=== PATIENT | female | born 1995 | race Caucasian/White ===

== ENCOUNTER 2020-11-29 22:37 | Emergency (ER) | payer OTHER ==
[~2020-11-29] VITALS: Ht 165.1 cm; Wt 106.8 kg
[2020-11-29 22:41] VITALS: BP 141/76
[2020-11-29] MEDS ORDERED: ZOLO25TA PO (23:03)
== END 2020-11-30 00:40 | disposition left against medical advice (07) ==
LOC: M ED 22:37
DX: Z53.21 Procedure and treatment not carried out due to patient leaving prior to being seen by health care provider (principal)

== ENCOUNTER → 2021-01-31 | Outpatient (CLI) | payer OTHER ==
[~2021-01-31] MED LIST: ACET-907 PO; ANEC4CRE3 TOP; CLAR10CA3 PO; OMEP10CASR PO; PRENTAB9 PO; VITA50TA43 PO; ZOFR4TAB16 PO; ZOLO25TA PO
[2021-01-31 08:54] LABS: HEMATOCRIT 37.2 % (36.0-47.0); HEMOGLOBIN 12.3 g/dl (12.0-15.5); MEAN CORPUSCULAR HEMOGLOBIN 29.3 pg (27.0-33.0); MEAN CORPUSCULAR HGB CONC 33.1 g/dl (32.0-36.5); MEAN CORPUSCULAR VOLUME 88.6 fl (80.0-96.0); PLATELET COUNT, AUTOMATED 220 10^3/uL (150-450); WHITE BLOOD COUNT 8.3 10^3/uL (4.0-10.0)
[2021-01-31 09:20] LABS: GLUCOSE CHALLENGE TEST 1 HOUR 61 MG/DL (LESS THAN 140)
[2021-01-31 10:40] LABS: GC DNA AMPLIFICATION NEGATIVE (NEGATIVE)
[2021-01-31 11:05] LABS: HEPATITIS B SURFACE ANTIGEN NEGATIVE (NEGATIVE)
[2021-01-31 11:33] LABS: HEPATITIS C VIRUS ABY INDEX 0.1 INDEX (<0.8); HIV 1&2 SCREEN CENTAUR NEGATIVE (NEGATIVE)
== END ==
LOC: M LAB 06:54
PROVIDERS: ATTEND Advanced Practice Midwife
DX: Z36.89 Encounter for other specified antenatal screening (principal); Z3A.09 9 weeks gestation of pregnancy

== ENCOUNTER → 2021-02-11 | Outpatient (CLI) | payer OTHER ==
[~2021-02-11] MED LIST changes: -ACET-907 PO; -ANEC4CRE3 TOP; -CLAR10CA3 PO; -OMEP10CASR PO; -PRENTAB9 PO; -VITA50TA43 PO; -ZOFR4TAB16 PO
== END ==
LOC: M WHC 16:09
PROVIDERS: ATTEND Obstetrics & Gynecology
DX: Z34.82 Encounter for supervision of other normal pregnancy, second trimester (principal); Z3A.15 15 weeks gestation of pregnancy; Z53.8 Procedure and treatment not carried out for other reasons

== ENCOUNTER → 2021-02-15 | Outpatient (CLI) | payer OTHER | LOC: M PLALAB 12:59 | PROVIDERS: ATTEND Obstetrics & Gynecology | DX: Z34.91 Encounter for supervision of normal pregnancy, unspecified, first trimester (principal); Z3A.00 Weeks of gestation of pregnancy not specified ==

== ENCOUNTER → 2021-03-16 | Outpatient (CLI) | payer OTHER ==
[~2021-03-16] MED LIST changes: +ACET-907 PO; +CLAR10CA3 PO; +OMEP10CASR PO; +PRENTAB9 PO; +VITA50TA43 PO; +ZOFR4TAB16 PO
--- NOTE | 2021-03-16 08:34 | REP ---
INDICATION: ANATOMY COMPARISON: None. TECHNIQUE: Transabdominal obstetrical ultrasound with color Doppler evaluation. FINDINGS: Examination demonstrates a single live intrauterine in cephalic presentation. motion is identified by technologist. Placenta is noted posterior and grade 1 without evidence for placenta previa or abruption. Amniotic fluid volume is normal. Cervix measures 5.7 cm in length and appears closed.. Selected gestational age: 20 weeks 2 days with EMMY 08/01/2021. Gestational age by current measurements 20 weeks 3 days with EMMY 07/31/2021. FHR equals 143 beats per minute. BPD: 4.9 cm at 20 weeks 6 days HC: 18.3 cm at 20 weeks 5 days AC: 15.3 cm at 20 weeks 3 days FL: 3.3 cm at 20 weeks 1 day HL: 3.0 cm at 20 weeks 0 days HC/AC: 1.20 Estimated weight 351 grams (52ndpercentile). Anatomical assessment demonstrates normal structures including cranium, choroid plexus, cavum, cerebellum/posterior fossa, facial features, lungs, diaphragm, stomach, cord insertion/three-vessel cord, bladder, spine, and extremities. Limited evaluation of the heart/ventricular outflow tracts and kidneys due to positioning and body habitus. IMPRESSION: 1. Single live intrauterine in cephalic presentation demonstrating appropriate estimated weight. 2. Anatomical limitations as noted above. No gross abnormalities are identified. <Electronically signed by Jorge Maya > 03/16/21 [id number]
== END ==
LOC: M WHC 06:55
PROVIDERS: ATTEND Obstetrics & Gynecology
DX: Z36.89 Encounter for other specified antenatal screening (principal); Z3A.15 15 weeks gestation of pregnancy

== ENCOUNTER 2021-03-17 17:32 | Outpatient (CLI) | payer OTHER ==
[~2021-03-17] VITALS: Ht 165.1 cm; Wt 120.2 kg
[~2021-03-17 17:32] MED LIST changes: -ACET-907 PO; -CLAR10CA3 PO; -OMEP10CASR PO; -PRENTAB9 PO; -VITA50TA43 PO; -ZOFR4TAB16 PO
[2021-03-17] MEDS ORDERED: VITA50TA43 PO (17:55)
[2021-03-17] MEDS ORDERED: PRENTAB9 PO (17:55)
[2021-03-17] MEDS ORDERED: OMEP10CASR PO (17:55)
[2021-03-17] MEDS ORDERED: ZOFR4TAB16 PO (17:55)
[2021-03-17] MEDS ORDERED: HOME MED LIST COMPLETE! XX SCH (17:55)
[2021-03-17] MEDS ORDERED: ACET-907 PO (17:55)
[2021-03-17] MEDS ORDERED: CLAR10CA3 PO (17:55)
[2021-03-17 17:58] VITALS: BP 121/72
--- NOTE | 2021-03-17 18:38 | IPNPDOC ---
Obstetrical Progress Note Date of Service Mar 17, 2021 Subjective 25yo at 20+3 weeks EGA. Reports lower pelvic pain and pressure throughout today that has become worse as the day has progressed. She denies loss of fluid or vaginal bleeding. Reports regular, frequent movement. ROS: No QUISPE, visual changes, RUQ pain, sob, cp, n/v/f/c. complications: History of bipolar disorder, obesity, chronic right hip pain O: Normotensive, normal HR, afebrile Abd: soft,nt,nd, no fundal tenderness SVE: Less than 1 cm dilated, long/thick, intact, small amount of bloody show TVUS: Cervical length 3.8 cm. no dynamic changes or funneling noted Doptone's: 140 bpm [place]: No contraction pattern A/P: 25 yo at 20+3 weeks EGA. No evidence of cervical shortening or advanced dilation. Reassuring maternal and status. -Routine second trimester precautions given. -Follow up in office as scheduled. Virginia Goins DO FACOG. Objective Vital Signs Date Time Temp Pulse Resp B/P (MAP) Pulse Ox O2 Delivery O2 Flow Rate FiO2 03/17/21 17:58 97.9 103 18 121/72 (88) ARNOLDO GOINS DO Mar 17, 2021 18:38
== END 2021-03-17 18:38 | disposition home or self-care (01) ==
LOC: M LDO 17:32
PROVIDERS: ATTEND Obstetrics & Gynecology
DX: O26.892 Other specified pregnancy related conditions, second trimester (principal); R10.2 Pelvic and perineal pain; Z3A.20 20 weeks gestation of pregnancy; M25.551 Pain in right hip; O99.342 Other mental disorders complicating pregnancy, second trimester; F31.9 Bipolar disorder, unspecified; O99.212 Obesity complicating pregnancy, second trimester; E66.9 Obesity, unspecified
CPT/HCPCS: 76815; G0378; G0463

== ENCOUNTER 2021-04-22 11:39 | Emergency (ER) | payer OTHER ==
[~2021-04-22] VITALS: Ht 165.1 cm; Wt 124.7 kg
[~2021-04-22 11:39] MED LIST changes: +ACET-907 PO; +CLAR10CA3 PO; +OMEP10CASR PO; +PRENTAB9 PO; +VITA50TA43 PO; +ZOFR4TAB16 PO
[2021-04-22] MEDS ORDERED: LIDOCAINE 4% CREAM 5GM (LMX4) TOP ONE (14:30)
[2021-04-22] MEDS ORDERED: ACETAMINOPHEN 500 MG TAB PO ONE (14:30)
--- NOTE | 2021-04-22 15:01 | REP ---
INDICATION: r/o dvt, upper thigh pain, pls look at inguinal nodes. COMPARISON: None. TECHNIQUE: Multiple ultrasonographic images of the deep venous structures of the left lower extremity were obtained from the inguinal ligament to the ankle. Venous compression techniques, color doppler imaging, and augmentation techniques were also obtained where appropriate. As per the ACR guidelines the anterior tibial vein can not be effectively evaluated. Only compression techniques in the calf on the peroneal and posterior tibial veins was attempted/performed. FINDINGS: There is no abnormal echogenic material seen within any of the visualized deep venous structures that would suggest acute thrombosis. Coaptation is unremarkable throughout. Doppler interrogation shows an expected response to respiratory variability and augmentation in the thigh. Compression techniques in the calf were unobtainable. The color flow images show what appears to be a normal vascular pattern throughout the thigh. IMPRESSION: There is no ultrasonographic evidence of deep venous thrombosis involving any of the visualized deep venous structures of the left lower extremity as described above. Due to technical parameters calf vein DVT can not be ruled out. <Electronically signed by Ramiro Smith > 04/22/21 [id number]
--- NOTE | 2021-04-22 15:07 | REP ---
INDICATION: r/o dvt, upper thigh pain, pls look at inguinal nodes. COMPARISON: None. TECHNIQUE: Targeted left groin/inguinal sonography. FINDINGS: Left inguinal soft tissue sonography shows no evidence of adenopathy, cyst, or mass. IMPRESSION: Unremarkable targeted sonography left groin. No adenopathy, cyst or mass seen. <Electronically signed by Abraham Carbone > 04/22/21 [id number]
[2021-04-22] MEDS ORDERED: ANEC4CRE3 TOP (15:22)
[2021-04-22 15:48] VITALS: BP 132/71
== END 2021-04-22 15:49 | disposition home or self-care (01) ==
LOC: M ED 11:39
DX: O26.891 Other specified pregnancy related conditions, first trimester (principal); R10.30 Lower abdominal pain, unspecified; M79.652 Pain in left thigh; O99.341 Other mental disorders complicating pregnancy, first trimester; F31.9 Bipolar disorder, unspecified; Z79.899 Other long term (current) drug therapy

== ENCOUNTER → 2021-04-28 | Outpatient (CLI) | payer OTHER ==
[~2021-04-28] MED LIST changes: +ANEC4CRE3 TOP
--- NOTE | 2021-04-28 08:08 | REP ---
INDICATION: F/U ANATOMY COMPARISON: 03/16/2021 TECHNIQUE: Transabdominal obstetrical ultrasound with color Doppler evaluation. FINDINGS: Examination demonstrates a single live intrauterine in breech presentation. motion is identified by technologist. Placenta is noted posterior and grade 0 without evidence for placenta previa or abruption. Amniotic fluid volume is normal. Cervix measures 5.2 cm in length and appears closed.. Selected gestational age: 28 weeks 0 days with EMMY 07/21/2021. Gestational age by current measurements 28 weeks 0 days with EMMY 07/21/2021. FHR equals 139 beats per minute. Estimated weight 1154 grams (35thpercentile). Anatomical assessment demonstrates normal structures including kidneys. Continued limited evaluation of the heart/ventricular outflow tracts due to positioning.. IMPRESSION: Single live intrauterine in breech presentation demonstrating appropriate estimated weight. Continued limited evaluation of the heart/ventricular outflow tracts due to positioning. <Electronically signed by Jorge Maya > 04/28/21 [id number]
== END ==
LOC: M WHC 07:01
PROVIDERS: ATTEND Obstetrics & Gynecology
DX: Z36.2 Encounter for other antenatal screening follow-up (principal); O99.212 Obesity complicating pregnancy, second trimester; Z3A.28 28 weeks gestation of pregnancy

== ENCOUNTER → 2021-05-19 | Outpatient (CLI) | payer OTHER ==
--- NOTE | 2021-05-19 16:29 | REP ---
INDICATION: F/U ANATOMY. COMPARISON: Ob ultrasound, 03/16/2021 and 04/28/2021. TECHNIQUE: Ultrasound evaluation of the gravid uterus was performed. FINDINGS: 1, Para 0 Expected GA/1st sono = 29 weeks 3 days, EMMY (expected) = 08/01/2021 Today's sono findings = 31 weeks 3 days, EMMY (today's sono) = 07/18/2021 Number: 1 Position: Breech Heart Rate: 153 BPM S/D Ratio: 3.29 Placental Position: Posterior Amniotic Fluid Volume: Normal ROMEO: 19.9 ROMEO: Normal Range: 9.1-23.2 cm Cervix Length 5.2 cm MEASUREMENTS: BPD: 7.6 cm, consistent with 30 weeks 4 days, mean gestational age. HC: 29.2 cm, consistent with 32 weeks 1 day, mean gestational age. AC: 27.1 cm, consistent with 31 weeks 2 days, mean gestational age. FL: 6.0 cm, consistent with 31 weeks 1 day, mean gestational age. Estimated Weight: 1730 grams 93 percentile. The following structures are visualized and are unremarkable: 4-chamber heart, RVOT, LVOT, cord insertion, umbilical arteries, and 3-vessel cord. IMPRESSION: 1. Single living intrauterine of 31 weeks 3 days, mean gestational age. The ROMEO is 19.9. The growth percentile is 93%. 2. The heart and ventricular outflow tracts are well demonstrated. <Electronically signed by Layo Huntley > 05/19/21 [id number]
== END ==
LOC: M WHC 14:51
PROVIDERS: ATTEND Obstetrics & Gynecology
DX: Z36.89 Encounter for other specified antenatal screening (principal); Z3A.27 27 weeks gestation of pregnancy

== ENCOUNTER → 2021-06-01 | Outpatient (CLI) | payer OTHER ==
[2021-06-01 15:50] LABS: CREATININE,RANDOM URINE 54.4 MG/DL; TOTAL PROTEIN,RANDOM URINE 14.8 MG/DL (0.0-12.0)
[2021-06-01 15:54] LABS: ALT/SGPT 18 U/L (12-78); BILIRUBIN,TOTAL 0.2 MG/DL (0.2-1.0); CREATININE FOR GFR 0.66 MG/DL (0.55-1.30); GLOMERULAR FILTRATION RATE > 60.0 (>60); LDH LACTATE DEHYDROGENASE 161 U/L (84-246)
== END ==
LOC: M PLALAB 13:12
PROVIDERS: ATTEND Advanced Practice Midwife
DX: Z36.89 Encounter for other specified antenatal screening (principal); Z3A.31 31 weeks gestation of pregnancy

== ENCOUNTER → 2021-06-01 | Outpatient (CLI) | payer OTHER ==
[2021-06-01 13:26] LABS: HEMATOCRIT 35.1 % (36.0-47.0); HEMOGLOBIN 11.5 g/dl (12.0-15.5); MEAN CORPUSCULAR HEMOGLOBIN 28.3 pg (27.0-33.0); MEAN CORPUSCULAR HGB CONC 32.8 g/dl (32.0-36.5); MEAN CORPUSCULAR VOLUME 86.5 fl (80.0-96.0); PLATELET COUNT, AUTOMATED 301 10^3/uL (150-450); RED BLOOD COUNT 4.06 10^6/uL (4.00-5.40); WHITE BLOOD COUNT 12.1 10^3/uL (4.0-10.0)
[2021-06-01 15:36] LABS: GC DNA AMPLIFICATION NEGATIVE (NEGATIVE)
== END ==
LOC: M PLALAB 10:22
PROVIDERS: ATTEND Obstetrics & Gynecology
DX: R73.01 Impaired fasting glucose (principal)

== ENCOUNTER → 2021-06-07 | Outpatient (CLI) | payer OTHER ==
--- NOTE | 2021-06-07 12:44 | REP ---
INDICATION: GROWTH UTERINE SIZE DATE DISCREPANCY COMPARISON: 05/19/2021 TECHNIQUE: Transabdominal obstetrical ultrasound with color Doppler evaluation. FINDINGS: Examination demonstrates a single live intrauterine in breech presentation. motion is identified by technologist. Placenta is noted posterior and grade 1 without evidence for placenta previa or abruption. Amniotic fluid volume is normal. Cervix measures 4.1 cm in length and appears closed.. Selected gestational age: 32 weeks 1 day with EMMY 08/01/2021. Gestational age by current measurements 34 weeks 0 days with EMMY 07/19/2021. FHR equals 142 beats per minute. BPD: 8.4 cm at 33 weeks 6 days HC: 31.4 cm at 35 weeks 1 day AC: 30.1 cm at 34 weeks 0 days FL: 6.6 cm at 34 weeks 1 day HL: 5.6 cm at 32 weeks 3 days HC/AC: 1.04 Estimated weight 2367 grams (greater than 97thpercentile based on age by 1st ultrasound at 32 weeks 1 day). ROMEO: 18.5 cm IMPRESSION: Single live intrauterine in breech presentation. Greater than expected interval growth requires correlation. <Electronically signed by Jorge Maya > 06/07/21 [id number]
== END ==
LOC: M WHC 11:29
PROVIDERS: ATTEND Advanced Practice Midwife
DX: O26.849 Uterine size-date discrepancy, unspecified trimester (principal)